=== PATIENT | male | born 1980 | race Caucasian/White ===

== ENCOUNTER 2019-01-02 08:39 | Emergency (ER) | payer OTHER ==
--- NOTE | 2019-01-02 09:20 | EDPHY ---
H & P Stated Complaint: r tinnitis has seen eent stopped steroids 2 wks ago/htn - Personal History Current Tetanus Diphtheria and Acellular Pertussis (TDAP): Yes - Medical/Surgical History Hx Asthma: No Hx Chronic Respiratory Disease: No Hx Diabetes: No Hx Cardiac Disease: No Hx Renal Disease: No Hx Cirrhosis: No Hx Alcoholism: No Hx HIV/AIDS: No Hx Splenectomy or Spleen Trauma: No Other PMH: PMH:HTN,. PSH:septim repair - Social History Smoking Status: Current some day smoker Time Seen by Provider: 01/02/19 08:52 HPI/ROS: CHIEF COMPLAINT: Tinnitus, hypertension HISTORY OF PRESENT ILLNESS: 38-year-old male drove himself to the ER. Patient describes 1st episode of tinnitus in the right ear 1.5 years ago at which point he was seen by [facility] ear nose and throat given a course of oral steroids. At that time he describes a high-pitched noise which has occurred intermittently over the past several months.He had an MRI at that time which is negative for malignancy. The patient describes an increase in life stressors recently, increase in weight , decrease in exercise, decrease in sleep hygiene. Early this morning he awoke after a stressful dream, was complaining of anxiety secondary to recent litigation notice and noticed return of tinnitus in his right ear. He subsequently checked his blood pressure home blood pressure machine registered a systolic of 180 and came to the ER for evaluation. He has previously been on lisinopril 10 mg daily which his PCP took him off of approximately 1 year ago secondary to lifestyle changes, weight loss, which improved his blood pressure. He denies: Chest pain, dyspnea, back pain, headache, nausea, vomiting, neck pain, hearing loss, dizziness, barotrauma, otorrhea, otalgia, recent cold or URI symptoms. PRIMARY CARE PROVIDER: REVIEW OF SYSTEMS: 10 systems reviewed and negative with the exception of the elements mentioned in the history of present illness PAST MEDICAL & SURGICAL HISTORY: history of hypertension SOCIAL HISTORY: . 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 Nonsmoker. No drug use. PHYSICAL EXAM (Prior to examination, patient consented to physical exam, hands were washed and my usual and customary physical exam procedures followed) 1) GENERAL: Well-developed, well-nourished, alert and oriented. Appears anxious. 2) HEAD: Normocephalic, atraumatic 3) HEENT: Pupils equal, round, reactive to light bilaterally. Sclera anicteric. Nasopharynx, oropharynx, clear, no lesions. Moist Mucous membranes. Ears bilaterally with normal tympanic membranes. Bilaterally and no evidence of otitis media otitis externa. Bilateral mastoid nontender non boggy. No lesions. 4) NECK: Full range of motion, no meningeal signs. No carotid bruit 5) LUNGS: Clear auscultation bilaterally, no wheezes, no rhonchi, no retractions. 6) HEART: Regular rate and rhythm, no murmur, no heave, no gallop. 7) ABDOMEN: No guarding, no rebound, no focal tenderness, negative McBurney's, negative Bone's, negative Rovsing's, negative peritoneal sign, 8) MUSCULOSKELETAL: Moving all extremities, no focal areas of tenderness, no obvious trauma. No peripheral edema or discoloration. Negative Homans no palpable cord 9) BACK: No CVA tenderness, no midline vertebral tenderness, no fluctuance, no step-off, no obvious trauma, no visual or palpable abnormality. 10) SKIN: No rash, no petechiae. 11) Psychiatric: Patient is oriented X 3, there is no agitation. 12) NEURO: Awake, alert, and oriented to person, place and time. Answers questions appropriately. There were no obvious focal neurologic abnormalities. No cerebellar dysfunction. Cranial nerves 2 through to 12 intact. Normal steady gait. Upper and lower extremities bilaterally with strength 5 / 5, reflexes 2+. DIFFERENTIAL DIAGNOSIS: In no particular order include but limited to tinnitus , acoustic neuroma, Meniere's disease (José Luis,D Elizabeth) Constitutional: Initial Vital Signs Temperature (C) 36.7 C 01/02/19 08:43 Heart Rate 83 01/02/19 08:43 Respiratory Rate 18 01/02/19 08:43 Blood Pressure 165/113 H 01/02/19 08:43 O2 Sat (%) 98 01/02/19 08:43 O2 Delivery Mode Room Air Allergies/Adverse Reactions: No Known Allergies Allergy (Verified 01/02/19 08:43) Home Medications: Medication Instructions Recorded ALPRAZolam [Xanax 0.5 MG (*)] 0.5 mg PO TID PRN #5 tab 01/02/19 Lisinopril 10 mg PO DAILY 30 Days tablet 01/02/19 Medical Decision Making ED Course/Re-evaluation: Given the patient's increase in numerous life stressors, change in sleep hygiene , increasing anxiety, we discussed multiple pathologies. He indicates that he has previously been on Xanax which he thinks he would benefit from. I have agreed to give him a small prescription for Xanax as needed for anxiety and rest with my usual and customary benzodiazepine precautions and instructions. Regarding his blood pressure. This is elevated however doubt hypertensive crisis. He has previously been lisinopril and I think he would benefit from restarting this. At this time I do not identify definitive indication for diagnostic studies or imaging from the emergency department. Today is Friday. I recommended he contact [facility] ear nose and throat as well as primary care provider Dr. Nery Hood on Friday to be followed up. Recommend he keep a blood pressure diary. He feels comfortable being discharged. Given red flag signs and symptoms and reasons to return to the ER. All questions and concerns addressed by myself. Care of patient under supervision of primary Supervising physician Dr Willard Solorio. (Mary Ordonez) Other Provider: PHYSICIAN DOCUMENTATION: The patient was evaluated and managed by the Physician Portrait Photographer. My co- signature indicates that I have reviewed this chart and I agree with the findings and plan of care as documented. I am the secondary supervising physician. (Kade Solorio) Departure - Departure Disposition: Home, Routine, Self-Care Clinical Impression: Tinnitus Qualifiers: Laterality: right Qualified Code(s): H93.11 - Tinnitus, right ear Hypertension Qualifiers: Hypertension type: unspecified Qualified Code(s): I10 - Essential (primary) hypertension Condition: Good Instructions: DASH Eating Plan (ED), Low-Sodium Diet (ED), Hypertension (ED), Tinnitus (ED) Additional Instructions: Please take your lisinopril as prescribed, plan on following up with Dr. Nery Hood and [facility] ear nose and throat as well. Referrals: Nery Hood [place] [place] - 5-7 days, call for appt. [facility] [Outside] - 2-3 days, call for appt. Prescriptions: ALPRAZolam [Xanax 0.5 MG (*)] 0.5 mg PO TID PRN #5 tab PRN Reason: Anxiety Lisinopril 10 mg PO DAILY 30 Days tablet
[2019-01-02 09:29] VITALS: BP 141/102
== END 2019-01-02 09:27 | disposition home or self-care (01) ==
DX: H93.11 Tinnitus, right ear (principal); I10 Essential (primary) hypertension; F41.9 Anxiety disorder, unspecified; Z79.899 Other long term (current) drug therapy